=== PATIENT | female | born 1945 | race Two or more races ===

== ENCOUNTER 2021-11-10 07:45 | Outpatient (CLI) | payer MEDICARE | END 2021-11-10 23:59 | disposition home or self-care (01) | LOC: RAD 07:45 | PROVIDERS: ATTEND Surgery | DX: K80.20 Calculus of gallbladder without cholecystitis without obstruction (principal); R10.9 Unspecified abdominal pain; R11.2 Nausea with vomiting, unspecified | CPT/HCPCS: 78226; A9537; J2805 ==